=== PATIENT | female | born 1965 | race Caucasian/White ===

== ENCOUNTER 2021-09-12 10:35 | Emergency (ER) | payer MEDICARE, OTHER ==
[2021-09-12 11:35] LABS: HEMOGLOBIN 16.1 gm/dl (12.3-15.3); RED BLOOD COUNT 4.97 M/UL (4.00-5.10); WHITE BLOOD COUNT 12.9 K/UL (4.5-11.0)
[2021-09-12 12:42] LABS: BUN/CREATININE RATIO 14 (0-10)
== END 2021-09-12 15:55 | disposition home or self-care (01) ==
LOC: ER1 10:35
PROVIDERS: Physician Assistant
DX: R06.02 Shortness of breath (principal); F17.210 Nicotine dependence, cigarettes, uncomplicated; E11.9 Type 2 diabetes mellitus without complications; J44.9 Chronic obstructive pulmonary disease, unspecified; E78.5 Hyperlipidemia, unspecified; I10 Essential (primary) hypertension; Z79.82 Long term (current) use of aspirin
CPT/HCPCS: 71045; 80053; 82550; 82553; 84484; 85025; 93005; 94664; 96374; 99285; J2930

== ENCOUNTER → 2021-09-24 | Outpatient (CLI) | payer MEDICARE | LOC: EXRD 15:11 | DX: R60.0 Localized edema (principal) | CPT/HCPCS: 93970 ==

== ENCOUNTER → 2021-12-08 | Outpatient (CLI) | payer MEDICARE, OTHER | LOC: HEART 5 12-04 08:00 | DX: R94.31 Abnormal electrocardiogram [ECG] [EKG] (principal); I20.8 Other forms of angina pectoris; R06.02 Shortness of breath; I27.20 Pulmonary hypertension, unspecified; I51.89 Other ill-defined heart diseases | CPT/HCPCS: 78452; 93306; A9502; J2785 ==